=== PATIENT | female | born 1965 | race African-American/Black ===

== ENCOUNTER 2021-05-06 04:15 | Day surgery (SDC) | payer BC, OTHER ==
[2021-05-04 12:07] VITALS: BMI 40.1
[2021-05-06] MEDS ORDERED: ONDANSETRON 4 MG/2 ML VIAL IVPUSH PRN (11:30)
[2021-05-06] MEDS ORDERED: ACETAMINOPHEN 325 MG TABLET (FP) PO PRN (11:30)
[2021-05-06] MEDS ORDERED: oxyCODONE HCL 5 MG TABLET PO PRN (11:30)
[2021-05-06] MEDS ORDERED: IBUPROFEN 400 MG TABLET (FP) PO PRN (11:30)
[2021-05-06] MEDS ORDERED: MIDAZOLAM HCL 2 MG/2 ML SINGLE DOSE VIAL ONE (12:13)
[2021-05-06] MEDS ORDERED: PROPOFOL 20 ML ONE ×2 (12:13)
[2021-05-06] MEDS ORDERED: ROCURONIUM BROMIDE 100 MG/10 ML VIAL ONE (12:44)
[2021-05-06] MEDS ORDERED: LACTATED RINGERS SOLUTION 1,000 ML IV SCH (14:15)
[2021-05-06 15:06] VITALS: TEMP 97.3
[2021-05-06 16:05] VITALS: BP 128/81; PULSE 82
== END 2021-05-06 16:05 | disposition home or self-care (01) ==
LOC: JASU-SURG 04:15
PROVIDERS: ATTEND Obstetrics & Gynecology
PROC: 0UB98ZX Excision of Uterus, Via Natural or Artificial Opening Endoscopic, Diagnostic (ICD-10-PCS; principal; 2021-05-06 12:00)
PROC: 0UDB7ZX Extraction of Endometrium, Via Natural or Artificial Opening, Diagnostic (ICD-10-PCS; 2021-05-06 12:00)
DX: N95.0 Postmenopausal bleeding (principal); N84.0 Polyp of corpus uteri
CPT/HCPCS: 88305-TC; 94760

== ENCOUNTER 2022-06-27 09:02 | Emergency (ER) | payer BC, OTHER ==
[2022-06-27 09:11] VITALS: BP 159/78; PULSE 75; RESP 20; TEMP 98.1; BMI 40.8
[2022-06-27] MEDS ORDERED: KETOROLAC TROMETHAMINE 30 MG/1 ML VIAL IM ONE (09:24)
[2022-06-27] MEDS ORDERED: KETOROLAC TROMETHAMINE 30 MG/1 ML VIAL ONE (09:26)
== END 2022-06-27 14:33 | disposition home or self-care (01) ==
LOC: JERFT 09:02 → JER 09:02 → JERFT 14:33
PROC: 2W3CX1Z Immobilization of Right Lower Arm using Splint (ICD-10-PCS; principal; 2022-06-27)
PROC: 3E0233Z Introduction of Anti-inflammatory into Muscle, Percutaneous Approach (ICD-10-PCS; 2022-06-27)
DX: M25.521 Pain in right elbow (principal); M25.571 Pain in right ankle and joints of right foot; R22.41 Localized swelling, mass and lump, right lower limb; S52.124A Nondisplaced fracture of head of right radius, initial encounter for closed fracture; W10.8XXA Fall (on) (from) other stairs and steps, initial encounter
CPT/HCPCS: 73070-TC-RT-FY; 73610-TC-RT-FY; 73630-TC-RT-FY; 99284-25